=== PATIENT | female | born 1985 | race Caucasian/White ===

== ENCOUNTER 2021-05-03 13:29 | Outpatient (REF) | payer BC, SELFPAY ==
--- NOTE | 2021-05-03 11:00 | PAPFT_PTH ---
PATIENT: Sara Powell LOC: [facility] U#:[id number] AGE/SX: 36/F ROOM: RE05/03/[address]: Brit Graham CNM : 1985 BED: DIS: 05/03/2021 SPEC #: [id number] RECD: 05/03/21 17:11 STATUS: DEL LI #: [id number] ROBERT: 05/03/21 11:[address]: Brit Graham DEPT: [facility] Cytology RECD BY: Emely Richards ENTERED: 05/03/21 17:12 SP TYPE: PAPFT OTHR DR: Hailey Morris Tissues: 1 - CX/ENDOCX FOR PAP SMEARS Procedures: PAP THIN PREP/UVM Screening HPV DNA PROBE Comments: [id number]
[2021-05-03 14:51] LABS: *AMPHETAMINES SCREEN URINE Negative (Negative); *BARBITURATES SCREEN URINE Negative (Negative); *BENZODIAZEPINES SCREEN URINE Negative (Negative); Cannabinoids THC Negative (Negative); Cocaine Screen,Urine Negative (Negative); METHADONE URINE SCREEN Negative (Negative); OPIATES URINE SCREEN Negative (Negative); Tricyclic Antidepressants Negative (Negative)
[2021-05-07 14:33] LABS: Chlamydia Result Negative (Negative); GC Result Negative (Negative)
[2021-05-10 11:45] LABS: Buprenorphine Negative ng/mL (Cutoff: 5.0); Norbuprenorphine Negative ng/mL (Cutoff: 2.5)
== END 2021-05-03 13:30 | disposition home or self-care (01) ==
LOC: LBN 13:29
PROVIDERS: PCP Family Medicine; Visit Provider Advanced Practice Midwife
DX: Z34.91 Encounter for supervision of normal pregnancy, unspecified, first trimester (principal); Z12.4 Encounter for screening for malignant neoplasm of cervix; Z11.51 Encounter for screening for human papillomavirus (HPV)
CPT/HCPCS: 80307; 87491; 87591; 88142; 87086; 87624

== ENCOUNTER 2021-05-10 02:47 | Outpatient (CLI) | payer BC, SELFPAY ==
[2021-05-10 12:40] LABS: Kit/Specimen SENT
[2021-05-10 12:50] LABS: Abs Immature Grans 0.02 10^3/uL (0.0-0.06); Absolute Basophil Count 0.01 10^3/uL (0.0-0.2); Absolute Lymphocyte Count 1.34 10^3/uL (1.2-3.4); Absolute Neutrophil Count 5.26 10^3/uL (1.2-6.7); Basophils % 0.1; HCT 36.6 % (36.0-46.0); HGB 12.1 g/dL (11.2-15.7); Immature Grans % 0.3; Lymphocytes % 18.8; MCH 30.7 pg (27.0-33.0); MCHC 33.1 % (32.0-36.0); MCV 92.9 fL (80-95); Neutrophils % 73.8; Nucleated RBC 0 %; RBC 3.94 10^6/uL (3.93-5.22); RDW 11.8 % (11.7-14.6); RDW-SD 40.4 fL; WBC 7.13 10^3/uL (4.4-10.8)
[2021-05-10 13:02] LABS: Diff Comment Diff Reviewed
[2021-05-10 13:03] LABS: RBC Morphology Normal
[2021-05-10 13:56] LABS: TSH (W/Ref FT4) 2.08 uIU/mL (0.36-3.74)
[2021-05-11 08:59] LABS: Hepatitis B Surface Ag Negative (Negative)
[2021-05-11 09:34] LABS: Hepatitis C Ab w Rflx HCV PCR Negative (Negative)
[2021-05-11 10:16] LABS: HIV-1/2 Ag & Ab Screen Negative (Negative)
[2021-05-11 11:22] LABS: Varicella IgG Antibody Positive (See Note)
[2021-05-11 11:28] LABS: Rubella IgG Ab (UVM) Positive (See Note)
[2021-05-11 14:17] LABS: Syphilis Total Ab w/Reflex Nonreactive (Nonreactive)
[2021-05-17 14:23] LABS: Specimen WB Whole Blood
[2021-05-17 14:37] LABS: Result Summary NEGATIVE; Specimen WB Whole Blood
== END 2021-05-10 02:48 | disposition home or self-care (01) ==
LOC: LBO 02:47
PROVIDERS: Advanced Practice Midwife; PCP Family Medicine; Visit Provider Advanced Practice Midwife
DX: Z34.91 Encounter for supervision of normal pregnancy, unspecified, first trimester
CPT/HCPCS: 36415; 81329; 86787; 86803; 86850; 86900; 86901; 87340; 87389; 81220; 84443; 85025; 86762; 86780

== ENCOUNTER 2021-08-24 03:28 | Outpatient (CLI) | payer BC, SELFPAY ==
[2021-08-24 14:36] LABS: HCT 34.2 % (36.0-46.0); HGB 11.3 g/dL (11.2-15.7); MPV 9.3 fL (8.0-11.0); Platelet Count 170 10^3/uL (130-400); RBC 3.64 10^6/uL (3.93-5.22); RDW 12.9 % (11.7-14.6); RDW-SD 43.8 fL
[2021-08-24 14:46] LABS: Glucose,1 Hr (Glucola) 126 mg/dL (80-140)
== END 2021-08-24 03:29 | disposition home or self-care (01) ==
LOC: LBO 03:28
PROVIDERS: PCP Family Medicine; Visit Provider Advanced Practice Midwife
DX: Z34.93 Encounter for supervision of normal pregnancy, unspecified, third trimester (principal)
CPT/HCPCS: 36415; 82950; 85027

== ENCOUNTER 2021-09-14 00:30 | Outpatient (CLI) | payer BC, SELFPAY ==
--- NOTE | 2021-09-14 07:45 | DI.US_ITS ---
Exam(s) US OB ULICES WEIGHT EXAM: US OB ULICES WEIGHT CLINICAL HISTORY: ULICES and weight due to COVID in first trimester,U07.1,O98.511. TECHNIQUE: Transabdominal obstetrical ultrasound performed. COMPARISON: US US OB 2-3 TRIMESTER from 06/28/2021 FINDINGS: Transabdominal obstetrical ultrasound performed. FINDINGS: Number of fetuses: One. position: Cephalic. Placental location: There is a grade 1 posterior placenta. No evidence of previa. BIOMETRIC DATA: BPD: 81 mm = 32 weeks 3 days HC: 285 mm = 31 weeks 2 days AC: 270 mm = 31 weeks 1 day FL: 60 mm = 31 weeks 1 day EFW: 1725 grms 55% Composite Age: 31 weeks 4 days EDC: 11/12/2021 Heart Rate: 150BPM Amniotic fluid index: 16.4 cm. Visually, amount of fluid is within normal limits. IMPRESSION: 1. Single live intrauterine gestation as above. 2. Estimated weight is 1725gms. 3. Amniotic fluid index is 16.4 cm. Visually within normal limits. DATA REPOSITORY:
== END 2021-09-14 00:50 ==
PROVIDERS: PCP Family Medicine; Visit Provider Advanced Practice Midwife
DX: O98.513 Other viral diseases complicating pregnancy, third trimester (principal); U07.1 COVID-19; Z3A.31 31 weeks gestation of pregnancy
CPT/HCPCS: 76816

== ENCOUNTER 2021-10-25 17:22 | Outpatient (REF) | payer BC, SELFPAY ==
[2021-10-25 16:00] LABS: *AMPHETAMINES SCREEN URINE Negative (Negative); *BARBITURATES SCREEN URINE Negative (Negative); *BENZODIAZEPINES SCREEN URINE Negative (Negative); Cannabinoids THC Negative (Negative); Cocaine Screen,Urine Negative (Negative); METHADONE URINE SCREEN Negative (Negative); OPIATES URINE SCREEN Negative (Negative); Tricyclic Antidepressants Negative (Negative)
== END 2021-10-25 17:23 | disposition home or self-care (01) ==
LOC: LBN 17:22
PROVIDERS: PCP Family Medicine; Visit Provider Advanced Practice Midwife
DX: Z34.93 Encounter for supervision of normal pregnancy, unspecified, third trimester (principal); Z36.85 Encounter for antenatal screening for Streptococcus B; Z3A.36 36 weeks gestation of pregnancy
CPT/HCPCS: 80307; 87081

== ENCOUNTER 2021-11-12 16:44 | Outpatient (REF) | payer BC, SELFPAY ==
[2021-11-12 15:34] LABS: ROM Plus Negative
== END 2021-11-12 16:45 | disposition home or self-care (01) ==
LOC: LBN 16:44
PROVIDERS: PCP Family Medicine; Visit Provider Advanced Practice Midwife
DX: Z34.93 Encounter for supervision of normal pregnancy, unspecified, third trimester (principal); N89.8 Other specified noninflammatory disorders of vagina; Z3A.39 39 weeks gestation of pregnancy
CPT/HCPCS: 84112; 87480; 87510; 87660

== ENCOUNTER 2021-11-19 09:30 | Inpatient (IN) | payer BC, SELFPAY ==
[2021-11-19] VITALS (24 sets, daily range): BP systolic 108–150; BP diastolic 59–89; PULSE 63–98; RESP 15–18; TEMP 36.4–37.6; O2SAT 87–100; BMI 29.2
[2021-11-19 11:46] LABS: Source Nasal/Nares
[2021-11-19 11:48] LABS: HCT 37.2 % (36.0-46.0); HGB 12.6 g/dL (11.2-15.7); MCH 30.8 pg (27.0-33.0); MCHC 33.9 % (32.0-36.0); MCV 91 fL (80-95); MPV 11.6 fL (8.0-11.0); Platelet Count 142 10^3/uL (130-400); RBC 4.09 10^6/uL (3.93-5.22); RDW 12.3 % (11.7-14.6); RDW-SD 40.3 fL; WBC 15.87 10^3/uL (4.4-10.8)
--- NOTE | 2021-11-19 11:56 | W.PM.OBHPL1 ---
Date of service: 11/19/21 Time of Service: 11:15 OB-HPI Labor/Delivery History of Present Illness Reason for Visit: Term Labor Chief Complaint: Uterine Contractions; Suspected Rupture of Membranes , Associated Signs and Symptoms of Suspected ROM: leaking large amounts of clear amniotic fluid through vagina. RADHA Calculator Estimated Delivery Date Method Current WG Current Estimate 11/18/21 LMP (Certain) 40w 1d Other Estimates 11/20/21 Ultrasound #1 39w 6d Comments: Sara reports SROM at 0300 today. Contractions started shortly after. Fluid has been clear. On arrival contractions were becoming more intense and every 3-4 minutes lasting 60-90 seconds. Baby has been active. She is hoping for unmedicated but has left options open Denies signs of pre-eclampsia, vaginal bleeding. Kh History of Present Expected Delivery Route/Plan - CNM FOB/partner - Sebastian Cho (first child) BG Hollie Interested in using nitrous, waterbirth GBS negative Specific Issues/Plan 1. AMA, desires cfDNA screening. drawn 05/03 1a. offered level 2 sono @ [facility] and M consult, pt accepts, order placed 1b. Panorama Neg X 5, female, Declined level 2 US, US at [facility] 2. Waiting for PA approval before having CF/SMA drawn, undecided about AFP. CF and SMA neg 3. Depression, responded well w/Effexor XR, restarted @ 75 mg daily 04/06 3a. Effexor dose decreased to 37.5 per patient request, will consider weaning, wellbutrin started 08/24 for smoking cessation 4. PCN allergy in childhood, low risk and interested in allergy testing @ [facility], referral sent 4a. Declined penicillin testing. sensitivity if GBS pos. 5. Both pt and FOB are COVID vaccinated, 5a. Both had covid 05/2022- 32 week US on 09/14, ASA recommended daily 6. Former smoker now vaping nicotine, trying to reduce use-lowered the percentage slowly 6a. Wellbutrin prescribed for nicotine absinance. 7. PAP is neg with suggestion of BV, discussed with pt 06/28 - asymptomatic 8. Placenta 2.2 cms from os - recheck at 32 week US on 09/14. 55% growth, ULICES 16.4 9. Bacterial vaginosis - treated with metronidazole PO x7 days Assessment: History Reviewed & Current Informed Consent Informed Consent: Augmentation of Labor (if labor does not progress, we discussed pitocin if necessary due to ROM. Denies questions and verblaizes agreement and is aware of risks and benefits of augmentation of labor. WILLIAM) Review of Systems All systems reviewed & are unremarkable except as noted in HPI and below Constitutional Constitutional: Reports as per HPI Genitourinary Comments: leaking clear fluid vaginally PFSH All Active Problems COVID-19 affecting in first trimester (Acute) 05/15/2021 Chronic constipation (Acute) Nicotine dependence due to vaping tobacco product (Acute) Elderly primigravida, antepartum (Acute) H/O penicillin-type antibiotic allergy (Acute) (Acute) Depression (Chronic) Medical History Family history of congenital heart disease in paternal grandfather Family hx-stroke MGM Missed menses Positive home test Positive test Family History Maternal Grandfather Colon cancer Cancer bone CA Prostate cancer Self Depression Paternal Grandfather Heart disease Maternal Grandmother Stroke Other Alcohol use disorder Social History Smoking/Tobacco Use Status: Current every day Tobacco Type: e-cigarettes Quit status: considering quitting Second Hand Exposure: Yes Counseling given: provider counseling Smoking risk assessment performed?: Yes Alcohol Intake: former Counseling given: Yes Details: daily alcohol use prior to Substance use type: does not use Current gender identity: female History History 1 Para 0 Hx # Term Pregnancies 0 Multiple births 0 Hx # Pregnancies 0 Ectopic pregnancies 0 AB induced 0 Hx Number of Living Children 0 AB spontaneous 0 Meds Allergies and Home Medications Allergies Allergy/AdvReac Type Severity Reaction Status Date / Time Penicillins Allergy Verified 11/19/21 12:03 benzoyl peroxide AdvReac Intermediate moderate Verified 11/19/21 12:03 rash with extreme itching Home Medications Medication Instructions Recorded Confirmed Type vit with calcium-iron 1 tab PO DAILY 03/16/21 11/19/21 History fum-folic acid 60 mg-0.8 mg tablet docusate sodium 100 mg capsule 100 mg PO BID #60 caps 08/24/21 11/19/21 Rx (Colace) magnesium hydroxide 400 mg/5 mL 5 ml PO DAILY PRN 08/24/21 11/19/21 History oral suspension (Milk of Magnesia) venlafaxine 37.5 mg 37.5 mg PO DAILY 10/12/21 11/19/21 History capsule,extended release 24 hr metronidazole 500 mg tablet 500 mg PO BID #14 tabs 11/12/21 11/19/21 Rx Exam Physical Exam Vital signs: Temp Pulse Resp BP 97.9 F 63 15 121/77 11/19/21 11:02 11/19/21 11:02 11/19/21 11:02 11/19/21 11:02 Vital Signs Reviewed: Yes Constitutional Constitutional: mild distress (working well with contractions) Detailed Labor and Delivery Exam Dilation: 3 Effacement (%): 80 station: -2 Cervix position: posterior Min Score: Cervical Points Exam 0 1 2 3 Dilation Closed 1-2cm 3-4 cm 5-6cm Effacement 0-30% 40-50% 60-70% 80% Consistency Firm Medium Soft Station -3 -2 -1,0 +1,+2 Position Posterior Mid Anterior MIN Score(Cervical Ripeness Score): 8 Amniotic Membrane Status: Ruptured Rupture Method: Spontaneous Amniotic Fluid: Clear Contraction Frequency(min): 3-4 Contraction Duration(sec): 60-90 Contraction Intensity: Moderate Fetus A Heart Rate Baseline: 125 Monitor Accelerations: 15 X 15 Monitor Decelerations: None Variability: Moderate (6-25 BPM) Categories: Category I Est. Weight: 7 lb Date of Membrane Rupture: 11/19/21 Time of Membrane Rupture: 03:30 HEENT Exam HEENT Exam: Normal Neck Exam Neck Exam: Normal Chest/Brest/Axilla Exam Chest Exam: Normal Breast Exam Breast Exam: Not Done Respiratory Exam Respiratory Exam: Normal Cardiovascular Exam Cardiovascular Exam: Normal Abdominal Exam Abdominal Exam: Normal Rectal Exam Rectal Exam: Not Done Exam Exam: Normal (leaking clear amniotic fluid in large amounts. KH) Back/Spine/Pelvis Exam Back Exam: Not Done Pelvis Adequate: Yes Skin Exam Skin Exam: Normal Neurological Exam Neurological Exam: Normal Psychiatric Exam Psychiatric Exam: Normal Results Results Group Beta Strep: Negative Blood Type: A+ Rubella Status: Immune Varicella Immunity: Immune Risk Assessment Risk for Shoulder Dystocia Historical/Initial OB: NEGATIVE FOR: Pelvic Abnormality, Pre- BMI>30, Previous Shoulder Dystocia or Previous Macrosomia 40 Weeks: NEGATIVE FOR: EFW> 4500 gms, Maternal Weight Gain >40lb or Post Dates Delivery Plan @ 36wks: 10/25/21 KEMAL THOMAS Delivery Plan @ 40 wks: NVD. THOMAS Risk for Pre-Eclampsia Date Initiated/Initials: not indicated. jk Yes, if one or more: NEGATIVE FOR: Hx Pre-E/Gest HTN, Chronic HTN, Multiple Gestation, Pre-gestational DM, Renal Disease, Systemic Lupus or APA Syndrome Yes, if 2 or more: POSITIVE FOR: Nulliparity and Age>= 35 yrs; NEGATIVE FOR: >10yr btwn pregnancies, BMI>30, ethinicty, Mother/Sister w/ Pre-E or Previous IUGR Risk for Post- Hemorrhage Initial: NEGATIVE FOR: Multiple Gestation, Previous PPH, Known Clotting Deficiency, Grand Multiparity or Anticoagulation At Risk?: No Date/Initials: 11/19/21. Risks Reviewed Risks Reviewed Upon Admission: Yes
[2021-11-19 12:43] LABS: COVID-19 PCR Negative (Negative)
--- NOTE | 2021-11-19 13:57 | W.PM.OBNL1 ---
Date of service: 11/19/21 Time of Service: 13:57 Informed Consent Informed Consent: Augmentation of Labor (if labor does not progress, we discussed pitocin if necessary due to ROM. Denies questions and verblaizes agreement and is aware of risks and benefits of augmentation of labor. KH) Assessment and Plan Assessment and plan (1) PROM with onset of labor within 24 hours of rupture: Status: Acute Assessment and plan: 1. ROM at 0330, not 12 hours ruptured yet. Labor contractions are regular and increasing in intensity. 2. Will defer VE due to ROM 3. Nitrous for pain management and reassess as needed. Objective Abnormal lab results 11/19/21 Range/Units 11:24 WBC 15.87 H (4.4-10.8) 10^3/uL MPV 11.6 H (8.0-11.0) fL Temp Pulse Resp BP 97.6 F 71 16 135/80 11/19/21 13:01 11/19/21 13:01 11/19/21 13:01 11/19/21 13:01 Laboratory Results WBC 15.87 10^3/uL (4.4-10.8) H 11/19/21 11:24 RBC 4.09 10^6/uL (3.93-5.22) 11/19/21 11:24 Hgb 12.6 g/dL (11.2-15.7) 11/19/21 11:24 Hct 37.2 % (36.0-46.0) 11/19/21 11:24 MCV 91 fL (80-95) 11/19/21 11:24 MCH 30.8 pg (27.0-33.0) 11/19/21 11:24 MCHC 33.9 % (32.0-36.0) 11/19/21 11:24 RDW 12.3 % (11.7-14.6) 11/19/21 11:24 Plt Count 142 10^3/uL (130-400) 11/19/21 11:24 MPV 11.6 fL (8.0-11.0) H 11/19/21 11:24 COVID-19 Source Nasal/Nares 11/19/21 11:04 SARS-CoV-2 (PCR) Negative (Negative) 11/19/21 11:04 Patient ABO/Rh A Positive 11/19/21 11:24 Antibody Screen NEGATIVE 11/19/21 11:24 Subjective Interval history since last seen: Sara states she is fatigued but that contractions are stronger and coming every 2-3 minutes. She is requesting nitrous oxide for pain management. KH Interventions Pain Management Interventions: Nitrous Oxide (patient is aware of use and that she can be the only person using nitrous in room. KH) , patient is aware of nitrous use and that she is only person who can use or administer nitrous for herself. KH . Results Hemoglobin/Hematocrit: Hgb 12.6 g/dL (11.2-15.7) 11/19/21 11:24 Hct 37.2 % (36.0-46.0) 11/19/21 11:24 Abnormal Lab Findings: Abnormal Labs 11/19/21 11:24 WBC 15.87 H MPV 11.6 H
--- NOTE | 2021-11-19 15:23 | W.PM.OBNL1 ---
Date of service: 11/19/21 Time of Service: 15:23 Informed Consent Informed Consent: Augmentation of Labor (if labor does not progress, we discussed pitocin if necessary due to ROM. Denies questions and verblaizes agreement and is aware of risks and benefits of augmentation of labor. ) Pelvic Exam Dilation: 4 Effacement (%): 80 station: -2 Cervix Position: posterior Consistency: soft BISHOPS Score(Cervical Ripeness Score): 8 Comments: bag of forewaters palpable, will like rupture with next VE. Contractions Monitor Mode: External Contraction Frequency(min): 3 Contraction Duration(sec): 60 Intensity: Moderate Fetus A Monitor: External (US) Heart Rate Baseline: 140 Variability: Moderate (6-25 BPM) Categories: Category I Accelerations: 15 X 15 Decelerations: None Assessment and Plan Assessment and plan (1) PROM with onset of labor within 24 hours of rupture: Status: Acute Assessment and plan: 1. anesthesia notified of request for epidural 2. IV fluids to begin 3. Will reassess after epidural for cervical changes and consider pitocin if indicated. Objective Abnormal lab results 11/19/21 Range/Units 11:24 WBC 15.87 H (4.4-10.8) 10^3/uL MPV 11.6 H (8.0-11.0) fL Temp Pulse Resp BP 97.9 F 88 16 129/89 11/19/21 14:57 11/19/21 14:57 11/19/21 14:57 11/19/21 14:57 Laboratory Results WBC 15.87 10^3/uL (4.4-10.8) H 11/19/21 11:24 RBC 4.09 10^6/uL (3.93-5.22) 11/19/21 11:24 Hgb 12.6 g/dL (11.2-15.7) 11/19/21 11:24 Hct 37.2 % (36.0-46.0) 11/19/21 11:24 MCV 91 fL (80-95) 11/19/21 11:24 MCH 30.8 pg (27.0-33.0) 11/19/21 11:24 MCHC 33.9 % (32.0-36.0) 11/19/21 11:24 RDW 12.3 % (11.7-14.6) 11/19/21 11:24 Plt Count 142 10^3/uL (130-400) 11/19/21 11:24 MPV 11.6 fL (8.0-11.0) H 11/19/21 11:24 COVID-19 Source Nasal/Nares 11/19/21 11:04 SARS-CoV-2 (PCR) Negative (Negative) 11/19/21 11:04 Patient ABO/Rh A Positive 11/19/21 11:24 Antibody Screen NEGATIVE 11/19/21 11:24 Vital Signs Reviewed: Yes Subjective Interval history since last seen: requesting epidural, did not like nitrous oxide. She is aware that she will need to be in bed and on monitor for labor and that pitocin may be necessary due to relaxation of epidural. Agrees to this plan. Anesthesia paged. KH Interventions Pain Management Interventions: Epidural. Results Hemoglobin/Hematocrit: Hgb 12.6 g/dL (11.2-15.7) 11/19/21 11:24 Hct 37.2 % (36.0-46.0) 11/19/21 11:24 Abnormal Lab Findings: Abnormal Labs 11/19/21 11:24 WBC 15.87 H MPV 11.6 H
--- NOTE | 2021-11-19 15:23 | W.ANESPRE ---
General Info Date of Service Date Performed: 11/19/21 Height: 5 ft 5 in Weight: 79.832 kg Body Mass Index (BMI): 29.2 Meds Allergies and Home Medications Allergies Allergy/AdvReac Type Severity Reaction Status Date / Time Penicillins Allergy Verified 11/19/21 12:03 benzoyl peroxide AdvReac Intermediate moderate Verified 11/19/21 12:03 rash with extreme itching Home Medication Medication Instructions Recorded vit with calcium-iron 1 tab PO DAILY 03/16/21 fum-folic acid 60 mg-0.8 mg tablet docusate sodium 100 mg capsule 100 mg PO BID #60 caps 08/24/21 (Colace) magnesium hydroxide 400 mg/5 mL 5 ml PO DAILY PRN 08/24/21 oral suspension (Milk of Magnesia) venlafaxine 37.5 mg 37.5 mg PO DAILY 10/12/21 capsule,extended release 24 hr metronidazole 500 mg tablet 500 mg PO BID #14 tabs 11/12/21 Current Visit Medications: Current Medications Generic Name Dose Route Start Last Admin Trade Name Freq PRN Reason Stop Dose Admin Sodium Chloride 500 mls @ 0 mls/hr 11/19/21 08:58 Saline 500ml Bag IV PRN PRN As Directed Ringer's Solution 1,000 mls @ 1,000 mls/hr 11/19/21 15:22 IV 11/19/21 16:21 BOLUS ONE IV Miscellaneous Supplies 1 each 11/19/21 09:00 Iv Access IV DIRECTED [facility] Ondansetron HCl 4 mg 11/19/21 13:56 Ondansetron O.D.T. 4 Mg Tabef PO Q8H PRN PRN Sodium Chloride 0 ml 11/19/21 08:58 Normal Saline Flush 10 Ml Syr IVP PRN PRN Venlafaxine HCl 37.5 mg 11/19/21 18:00 Venlafaxine 37.5 Mg Capcr PO DAILY@1800 [facility] Active Problems Active Problems: Problem Status Onset Code PROM with onset of labor within 24 hours of rupture O42.00 COVID-19 affecting in first trimester O98.511, U07.1 Chronic constipation K59.09 Nicotine dependence due to vaping tobacco product F17.290 Elderly primigravida, antepartum O09.519 H/O penicillin-type antibiotic allergy Z88.0 Z34.90 Depression F32.A Medical History Medical History Family history of congenital heart disease in paternal grandfather Family hx-stroke MGM Missed menses Positive home test Positive test Tobacco Smoking/Tobacco Use Status: Current every day Tobacco Type: e-cigarettes Second hand exposure: Yes Counseling given: provider counseling Alcohol Alcohol Intake: former Details: daily alcohol use prior to Substance Use Substance use type: does not use Prental History History 1 Para 0 Hx # Term Pregnancies 0 Multiple births 0 Hx # Pregnancies 0 Ectopic pregnancies 0 AB induced 0 Hx Number of Living Children 0 AB spontaneous 0 Vital Signs and Lab Results Vital Signs Most Recent Vital Signs in EMR: Most Recent Vital Signs Temp Pulse Resp BP 36.6 C 88 16 129/89 11/19/21 14:57 11/19/21 14:57 11/19/21 14:57 11/19/21 14:57 Lab Results Result Diagrams: 11/19/21 11:24 Blood Type / Crossmatch: Patient ABO/Rh A Positive 11/19/21 Antibody Screen NEGATIVE 11/19/21 Complete Blood Count: White Blood Count 15.87 10^3/uL (4.4-10.8) H 11/19/21 11:24 Red Blood Count 4.09 10^6/uL (3.93-5.22) 11/19/21 11:24 Hemoglobin 12.6 g/dL (11.2-15.7) 11/19/21 11:24 Hematocrit 37.2 % (36.0-46.0) 11/19/21 11:24 Platelet Count 142 10^3/uL (130-400) 11/19/21 11:24 Complete Metabolic Panel: No Data to Display Liver Function Panel: No Data to Display Coagulation Panel: No Data to Display Cardiac Panel: No Data to Display Arterial Blood Gas: No Data to Display Venous Blood Gas: No Data to Display Pancreas Panel: No Data to Display Thyroid Panel: No Data to Display Infectious Disease: Coronavirus (COVID-19)(PCR) Negative (Negative) 11/19/21 11:04 Coronavirus 2019 Source Nasal/Nares 11/19/21 11:04 Blood Cultures: No Data to Display Toxicology Panel: Urine Amphetamines Screen Negative (Negative) 10/25/21 14:00 Urine Benzodiazepines Screen Negative (Negative) 10/25/21 14:00 Urine Barbiturates Screen Negative (Negative) 10/25/21 14:00 Urine Cocaine Screen Negative (Negative) 10/25/21 14:00 Urine Methadone Screen Negative (Negative) 10/25/21 14:00 Urine Opiates Screen Negative (Negative) 10/25/21 14:00 Ur Tricyclic Antidepressants Screen Negative (Negative) 10/25/21 14:00 Ur Tetrahydrocannabinol (THC) Scrn Negative (Negative) 10/25/21 14:00 Panel: No Data to Display Anesthesia Assessment and Plan Anesthesia History Personal History: No History of Anesthesia Complications Family History: No Family History of Anesthesia Complications Exercise Tolerance Exercise Tolerance: Metabolic Equivalents>4 Cardiac & Pulmonary Exam Cardiac Exam: Normal S1/S2 Heart Sounds Pulmonary Exam: Clear Bilateral Breath Sounds Implantable Cardiac Device Does patient have a Pacemaker or an ICD?: No Airway Exam Known Difficult Airway: No Mallampati Class: 2 Mouth Opening: Normal (> 3cm) Thyromental Distance: Greater than 3 cm Neck Range of Motion: Full ROM Neck Circumference: Normal Teeth Condition: Normal Dentition ASA Classification ASA Score: ASA 2 Emergency Case?: No NPO Status NPO Status: Full Stomach Status Status: Other () Anesthesia Plan Resuscitation Status: Full Code Anesthesia Technique: Epidural Anesthesia Airway Planned: Natural Airway Pain Management: Epidural Monitors Used: Standard Monitors Preoperative Comments:: 36 yo female requesting labor epidural. Currently 4 cm, 80%. Sig PMHx: depression, former smoker now vaping nicotine plt 142
[2021-11-19] MEDS: Lactated Ringers 500 ML IV (15:56)
--- NOTE | 2021-11-19 16:27 | W.ANESNEU ---
Epidural/Spinal Catheter Date Performed: 11/19/21 Procedure Start: 15:58 Procedure Stop: 16:04 Requesting Provider: Elenita Lorenzo Procedure Location: Obstetrics Reason Performed: Labor Epidural Standard Monitors Applied: ECG, Blood Pressure and SpO2 Patient Position: Sitting Sedation Given (Indicate Dose Given): No Sedation given Patient Mental Status: Awake Sterility: Hand Hygiene, Surgical Cap, Surgical Mask, Sterile Gloves, Sterile Drape/Sheet and Chlorhexidine Procedure Location: L3-L4 Interspace Epidural Needle: Tuohy 17 Guage Needle Length: 3.5 Inch Needle Approach: Midline Epidural Procedure: Skin Prepped, Sterile Drape Placed, DONALD to Saline Used and Epidural Catheter Placed Catheter Placed?: Catheter Placed Test Dose (Indicate Dose Given): 3ml 1.5% Lidocaine with 1:200K Epinephrine Given and Negative Test Dose Loss of Resistance Depth (cm): 6 Catheter depth at skin (cm): 11 Dressing: Sorbaview Dressing Placed and Mastisol Used Epidural Provider Bolus (Indicate Dose Given): Total Ropivacaine 0.125% with Fentanyl 2mcg/ml Given from pump. (ml) Dose:: 5 mL Additives (Indicate Dose Given ): None Infusion Medication: Medication Infusion Began Medication Infusion: Ropivacaine 0.125% with Fentanyl 2mcg/ml Maintenance Infusion Rate (ml/hour): 10 PCEA Bolus Dose (ml): 4 Block Level: T7 Paresthesia: None Ultrasound: Used to areli site Number of Attempts (See previous attempts in note section): 1 Procedure Tolerated: No Complications Procedure Outcome: Successful Procedure Comment:: wire reinforced catheter used. more dense on left vs right. discussed positioning and additional volume to overcome. Performed By: Rogelio Giordano
--- NOTE | 2021-11-19 16:37 | W.PM.OBNL1 ---
Date of service: 11/19/21 Time of Service: 16:30 Informed Consent Informed Consent: Augmentation of Labor (if labor does not progress, we discussed pitocin if necessary due to ROM. Denies questions and verblaizes agreement and is aware of risks and benefits of augmentation of labor. ) Pelvic Exam Dilation: 6 Effacement (%): 80 station: -2 Consistency: soft Comments: + bloody show with exam, no fore bundy palpated. Will continue to monitor for 2-3 hours and reassess. Contractions Monitor Mode: External Contraction Frequency(min): 2-3 Contraction Duration(sec): 60-90 Intensity: Moderate/Strong (on palpation) Fetus A Monitor: External (US) Heart Rate Baseline: 140 Variability: Moderate (6-25 BPM) Categories: Category I Assessment and Plan Assessment and plan (1) PROM with onset of labor within 24 hours of rupture: Status: Acute Assessment and plan: 1. epidural in place with good results. 2. Cervical change from 4 prior to epidural to 6 following 3. Will reassess in 2 hours or prn. 4. Expect NVD. Objective Abnormal lab results 11/19/21 Range/Units 11:24 WBC 15.87 H (4.4-10.8) 10^3/uL MPV 11.6 H (8.0-11.0) fL Temp Pulse Resp BP Pulse Ox 98.8 F 83 16 131/76 100 11/19/21 16:10 11/19/21 16:34 11/19/21 14:57 11/19/21 16:34 11/19/21 16:20 Laboratory Results WBC 15.87 10^3/uL (4.4-10.8) H 11/19/21 11:24 RBC 4.09 10^6/uL (3.93-5.22) 11/19/21 11:24 Hgb 12.6 g/dL (11.2-15.7) 11/19/21 11:24 Hct 37.2 % (36.0-46.0) 11/19/21 11:24 MCV 91 fL (80-95) 11/19/21 11:24 MCH 30.8 pg (27.0-33.0) 11/19/21 11:24 MCHC 33.9 % (32.0-36.0) 11/19/21 11:24 RDW 12.3 % (11.7-14.6) 11/19/21 11:24 Plt Count 142 10^3/uL (130-400) 11/19/21 11:24 MPV 11.6 fL (8.0-11.0) H 11/19/21 11:24 COVID-19 Source Nasal/Nares 11/19/21 11:04 SARS-CoV-2 (PCR) Negative (Negative) 11/19/21 11:04 Patient ABO/Rh A Positive 11/19/21 11:24 Antibody Screen NEGATIVE 11/19/21 11:24 Subjective Interval history since last seen: very comfortable since epidural. feeling relaxed. happy with process. KH Results Hemoglobin/Hematocrit: Hgb 12.6 g/dL (11.2-15.7) 11/19/21 11:24 Hct 37.2 % (36.0-46.0) 11/19/21 11:24 Abnormal Lab Findings: Abnormal Labs 11/19/21 11:24 WBC 15.87 H MPV 11.6 H
[2021-11-19] MEDS: Venlafaxine 37.5 MG CAPCR PO (16:48)
[2021-11-19] MEDS: Lactated Ringers 1,000 ML 150 ML IV (16:54)
[2021-11-19] MEDS: Oxytocin/Normal Saline 30 UNIT/500 ML BAG 2 UNITS IV (18:20)
--- NOTE | 2021-11-19 18:24 | W.PM.OBNL1 ---
Date of service: 11/19/21 Time of Service: 18:25 Informed Consent Informed Consent: Augmentation of Labor (if labor does not progress, we discussed pitocin if necessary due to ROM. Denies questions and verblaizes agreement and is aware of risks and benefits of augmentation of labor. ) Pelvic Exam Comments: VE deferred until active contractions. Contractions Contraction Frequency(min): 3-5 Contraction Duration(sec): 60-90 Intensity: Moderate Fetus A Monitor: External (US) Heart Rate Baseline: 140 Variability: Moderate (6-25 BPM) Categories: Category I Accelerations: 15 X 15 Decelerations: None Assessment and Plan Assessment and plan (1) PROM with onset of labor within 24 hours of rupture: Status: Acute Assessment and plan: 1. Discussed pitocin augmentation with patient as ROM since 0330 and contractions less frequent since epidural. Patient agrees to plan. Pitocin started at 2 mu. 2. Expect NVD. Objective Abnormal lab results 11/19/21 Range/Units 11:24 WBC 15.87 H (4.4-10.8) 10^3/uL MPV 11.6 H (8.0-11.0) fL Temp Pulse Resp BP Pulse Ox 98.6 F 98 H 16 134/69 100 11/19/21 18:02 11/19/21 18:02 11/19/21 18:02 11/19/21 18:02 11/19/21 16:20 Laboratory Results WBC 15.87 10^3/uL (4.4-10.8) H 11/19/21 11:24 RBC 4.09 10^6/uL (3.93-5.22) 11/19/21 11:24 Hgb 12.6 g/dL (11.2-15.7) 11/19/21 11:24 Hct 37.2 % (36.0-46.0) 11/19/21 11:24 MCV 91 fL (80-95) 11/19/21 11:24 MCH 30.8 pg (27.0-33.0) 11/19/21 11:24 MCHC 33.9 % (32.0-36.0) 11/19/21 11:24 RDW 12.3 % (11.7-14.6) 11/19/21 11:24 Plt Count 142 10^3/uL (130-400) 11/19/21 11:24 MPV 11.6 fL (8.0-11.0) H 11/19/21 11:24 COVID-19 Source Nasal/Nares 11/19/21 11:04 SARS-CoV-2 (PCR) Negative (Negative) 11/19/21 11:04 Patient ABO/Rh A Positive 11/19/21 11:24 Antibody Screen NEGATIVE 11/19/21 11:24 Subjective Interval history since last seen: remains very comfortable. We discussed pitocin augmentation due to contractions spacing slightly to 3-5 minutes apart. Patient agrees to plan. She is aware of risks, benefits and alternatives. We reviewed active management of third stage with pitocin and PO cytotec if needed. KH Results Hemoglobin/Hematocrit: Hgb 12.6 g/dL (11.2-15.7) 11/19/21 11:24 Hct 37.2 % (36.0-46.0) 11/19/21 11:24 Abnormal Lab Findings: Abnormal Labs 11/19/21 11:24 WBC 15.87 H MPV 11.6 H
[2021-11-19] MEDS: Normal Saline 500 ML IV (18:25)
[2021-11-20] VITALS (15 sets, daily range): BP systolic 111–140; BP diastolic 60–81; PULSE 67–88; RESP 14–18; TEMP 36.6–37.4; O2SAT 98–100
[2021-11-20] MEDS: Ondansetron O.D.T. 4 MG TABEF PO ×2 (01:37→13:39)
[2021-11-20] MEDS: Normal Saline 250 ML (03:08)
[2021-11-20] MEDS: Azithromycin 500 MG VIAL (03:08)
[2021-11-20] MEDS: Sodium Citrate 30 ML CUP (03:30)
[2021-11-20] MEDS: ceFAZolin 2 GM/50 ML BAG 125 GM (03:46)
--- NOTE | 2021-11-20 06:19 | W.ANESPOSTOP ---
Postoperative Evaluation Date, Time and Location Date Performed: 11/20/21 Time Performed: 05:40 Patient Location: Obstetrics Vital Signs Most Recent Imported Vital Signs: Most Recent Vital Signs Temp Pulse Resp BP Pulse Ox 37.4 C 88 16 125/71 100 11/20/21 01:02 11/20/21 06:11 11/20/21 01:02 11/20/21 06:11 11/20/21 05:07 Pain Score Most Recent Pain Score: Most Recent Pain Score Pain Level [Bilateral Abdomen] 2 11/19/21 23:42 Pain Level 6 11/20/21 01:37 Assessment Mental Status: Awake (Alert & Oriented to Patient Baseline) Airway and Respiratory Function: Patent airway with normal (patient baseline) respiratory exam Cardiovascular Function: Hemodynamically Stable Hydration Status: Adequately Hydrated Nausea & Vomiting: No Nausea or Vomiting Pain: Pain is tolerable per patient Peripheral Nerve Block: Patient did not receive a nerve block
--- NOTE | 2021-11-20 08:20 | W.OBCONSULT ---
Date of service: 11/20/21 Time of Service: 03:00 Assessment and Plan Assessment and plan (1) Arrested labor: Status: Acute Assessment and plan: Reviewed risks of CS with pt including infection, bleeding, pain and injury to nearby organs and she agrees to proceed. Consent signed and questions answered. Appropriate team aware. History of Present Illness Narrative: Called to discuss a C section due to arrest of dilation @6cm for >7hrs. Pt was having inadequate pain control with significant back pain. On pitocin without adequate contractions or a regular ctx pattern. Pt desires CS. PFSH All Active Problems (Updated 11/20/21 @ 09:15 by Nyasia Daily MD) Arrested labor (Acute) PROM with onset of labor within 24 hours of rupture (Acute) COVID-19 affecting in first trimester (Acute) 05/15/2021 Chronic constipation (Acute) Nicotine dependence due to vaping tobacco product (Acute) Elderly primigravida, antepartum (Acute) H/O penicillin-type antibiotic allergy (Acute) (Acute) Depression (Chronic) Medical History Family history of congenital heart disease in paternal grandfather Family hx-stroke MGM Missed menses Positive home test Positive test Family History Maternal Grandfather Colon cancer Cancer bone CA Prostate cancer Self Depression Paternal Grandfather Heart disease Maternal Grandmother Stroke Other Alcohol use disorder Social History Smoking/Tobacco Use Status: Current every day Tobacco Type: e-cigarettes Quit status: considering quitting Second Hand Exposure: Yes Counseling given: provider counseling Smoking risk assessment performed?: Yes Alcohol Intake: former Counseling given: Yes Details: daily alcohol use prior to Substance use type: does not use Current gender identity: female History History 1 Para 0 Hx # Term Pregnancies 0 Multiple births 0 Hx # Pregnancies 0 Ectopic pregnancies 0 AB induced 0 Hx Number of Living Children 0 AB spontaneous 0 Exam Const General: cooperative, healthy appearing and acute distress (with contractions) Results Last Vital Signs Temp 98.0 F 11/20/21 05:56 Pulse 83 11/20/21 07:30 Resp 18 11/20/21 05:56 BP 121/68 11/20/21 07:30 Pulse Ox 100 11/20/21 05:07 Labs Result diagrams: 11/19/21 11:24 Labs: Laboratory Results - last 24 hr 11/19/21 11/19/21 11/19/21 11:04 11:24 11:24 WBC 15.87 H RBC 4.09 Hgb 12.6 Hct 37.2 MCV 91 MCH 30.8 MCHC 33.9 RDW 12.3 Plt Count 142 MPV 11.6 H COVID-19 Source Nasal/Nares SARS-CoV-2 (PCR) Negative Patient ABO/Rh A Positive Antibody Screen NEGATIVE
--- NOTE | 2021-11-20 09:17 | W.PM.OP ---
Date of service: 11/20/21 Time of Service: 04:00 Operative Note Operative Note DATE OF PROCEDURE: 11/20/21 PRE-OP DIAGNOSIS: Arrest of dilation POST-OP DIAGNOSIS: same PROCEDURE: PLTCS SURGEON: Nyasia Daily ASSISTING SURGEON: Elenita Curran Refer to Anesthesia Record ESTIMATED BLOOD LOSS: 600 COMPLICATIONS: None Patient was transported to: floor Patient's condition: stable Indications: who presented at 40.1wks with SROM and progressed into labor spontaneously. She received an epidural at 4cm and then arrested dilation at 6cm for >7hrs despite use of pitocin augmentation. She opted to proceed with section. Findings: Female infant, transverse presentation. Normal appearing uterus, ovaries and tubes. Normal appearing placenta and cord. Procedure Description: After informed consent was signed the patient was taken to the operating room. She was given spinal anesthesia, SCDs were placed on her legs and a mcallister catheter had previously been introduced into her bladder. The heart rate was checked and was normal. She was then prepped and draped in the dorsal supine position with a leftward tilt. The patient was tested and spinal anesthesia was found to be adequate. A time out was performed. A skin incision was made with the scalpel and carried down to the underlying layer of fascia with blunt dissection. The fascia was incised on either side of the midline and the fascial incision extended laterally with a combination of sharp and blunt dissection. The inferior edge of the fascia was grasped with todd clamps and tented up and dissected down with a combination of sharp and blunt dissection. Then the superior edge of the fascial incision was grasped with todd clamps and tented up and dissected down with a combination of sharp and blunt dissection. The rectus muscles were in the midline and the peritoneum was entered bluntly. The peritoneal incision was extended laterally with blunt dissection. The bladder blade was inserted. A transverse incision was made in the lower uterine segment with the scalpel. The incision was extended superiorly and inferiorly with blunt pressure. The infants head delivered with fundal pressure followed by the shoulders and the rest of the body. The cord was milked toward the baby and after 1min it was clamped x2 and cut. The baby was handed to the ophthalmic technologist. Cord blood was collected. The placenta delivered with fundal massage and gentle cord traction and appeared to be intact. The uterus was exteriorized and cleared of clots and debris. The uterine incision was closed with 0-vicryl in a running locked fashion with a second layer of suture imbricating the first. Good hemostasis was noted. The abdomen was irrigated. The uterus was placed back into the abdominal cavity. The incision was inspected once again and good hemostasis was noted. The peritoneum was closed with 3-0 vicryl in a running unlocked fashion. There was good hemostasis of the rectus muscles. The fascia was closed with 0-vicryl in a running unlocked fashion. The subcuticular layer was irrigated and the skin was closed with 4-0 vicryl in a running subcuticular fashion. 1% lidocaine with injected subcuticularly. The incision was cleaned. Mastisol and steristrips were placed. A dressing was placed. The fundus was palpated to be firm. The patient was moved to the stretcher and taken to the recovery room in stable condition.
[2021-11-20] MEDS: Ketorolac 30 MG/ML VIAL IVP ×2 (11:50→19:00)
[2021-11-20] MEDS: Normal Saline Flush 10 ML SYR IVP ×3 (11:54→19:01)
--- NOTE | 2021-11-20 11:59 | W.PM.OBNL1 ---
Date of service: 11/20/21 Time of Service: 01:00 Informed Consent Informed Consent: Augmentation of Labor (if labor does not progress, we discussed pitocin if necessary due to ROM. Denies questions and verblaizes agreement and is aware of risks and benefits of augmentation of labor. WILLIAM) Pelvic Exam Dilation: 6 Effacement (%): 800 station: -2 Cervix Position: mid Consistency: soft Pooling: Positive Contractions Monitor Mode: External Contraction Frequency(min): every 2-4 minutes Contraction Duration(sec): 50-60 Intensity: Moderate Fetus A Monitor: External (US) Heart Rate Baseline: 140 Presentation: Vertex Variability: Moderate (6-25 BPM) Categories: Category I FHR Rhythm: Regular Accelerations: 15 X 15 Decelerations: None Amniotic Membrane Status: Ruptured Rupture Method: Spontaneous Amniotic Fluid: Clear Assessment and Plan Assessment and plan (1) PROM with onset of labor within 24 hours of rupture: Status: Acute Assessment and plan: IUPC recommended and Sara agrees. It was placed without difficulty. Uterine contractions assessed and determined to be inadequate. Will continue to assess and increase pitocin rate if indicated. Rest was encouraged. Dylon has not slept and is complaining of fatigue. Reassess for progress of labor in 2 hours and indications for were discussed with Sara if no change. Objective Temp Pulse Resp BP Pulse Ox 98.6 F 83 14 128/68 98 11/20/21 08:00 11/20/21 08:00 11/20/21 08:00 11/20/21 08:00 11/20/21 08:00 Laboratory Results WBC 15.87 10^3/uL (4.4-10.8) H 11/19/21 11:24 RBC 4.09 10^6/uL (3.93-5.22) 11/19/21 11:24 Hgb 12.6 g/dL (11.2-15.7) 11/19/21 11:24 Hct 37.2 % (36.0-46.0) 11/19/21 11:24 MCV 91 fL (80-95) 11/19/21 11:24 MCH 30.8 pg (27.0-33.0) 11/19/21 11:24 MCHC 33.9 % (32.0-36.0) 11/19/21 11:24 RDW 12.3 % (11.7-14.6) 11/19/21 11:24 Plt Count 142 10^3/uL (130-400) 11/19/21 11:24 MPV 11.6 fL (8.0-11.0) H 11/19/21 11:24 COVID-19 Source Nasal/Nares 11/19/21 11:04 SARS-CoV-2 (PCR) Negative (Negative) 11/19/21 11:04 Patient ABO/Rh A Positive 11/19/21 11:24 Antibody Screen NEGATIVE 11/19/21 11:24 Subjective Interval history since last seen: Sara is resting comfortably with epidural. Pitocin infusing at 14 mu/minute. Contractions are difficult to monitor with an irregular pattern Results Hemoglobin/Hematocrit: Hgb 12.6 g/dL (11.2-15.7) 11/19/21 11:24 Hct 37.2 % (36.0-46.0) 11/19/21 11:24 Abnormal Lab Findings: Abnormal Labs 11/19/21 11:24 WBC 15.87 H MPV 11.6 H
--- NOTE | 2021-11-20 12:06 | W.PM.OBNL1 ---
Date of service: 11/20/21 Time of Service: 03:00 Informed Consent Informed Consent: Augmentation of Labor (if labor does not progress, we discussed pitocin if necessary due to ROM. Denies questions and verblaizes agreement and is aware of risks and benefits of augmentation of labor. WILLIAM) Pelvic Exam Dilation: 6 station: -2 Position: OP Cervix Position: mid Consistency: soft Contractions Monitor Mode: External Contraction Frequency(min): every 2-4, irregular Contraction Duration(sec): varies Intensity: Moderate/Strong IUPC resting tone (mmHg): 30 IUPC peak pressure (mmHg): 60 IUPC [place] units: 150 Fetus A Monitor: External (US) Heart Rate Baseline: 140 Presentation: Vertex Variability: Moderate (6-25 BPM) Categories: Category I FHR Rhythm: Regular Accelerations: 15 X 15 Decelerations: None Assessment and Plan Assessment and plan (1) Arrested labor: Status: Acute Assessment and plan: Pitocin was infusing at 16 mu/min. Urban catheter wa placed at 0100. I examined Sara and I discussed lack of cervical change or decent with Sara and her support team and indications for . I also discussed the option of requesting an epidural bolus from [facility] and continuing to provide pitocin augmentation of section at this time. Sara prefers to have a at this time. I discussed Sara's status and her preference for a with Dr. Daily via telephone and she came in to discuss section with Sara. [facility] was also called and will plan to proceed with urgent section at this time. Pitocin infusion was discontinued due to plan for and patient discomfort, Objective Temp Pulse Resp BP Pulse Ox 98.6 F 83 14 128/68 98 11/20/21 08:00 11/20/21 08:00 11/20/21 08:00 11/20/21 08:00 11/20/21 08:00 Laboratory Results WBC 15.87 10^3/uL (4.4-10.8) H 11/19/21 11:24 RBC 4.09 10^6/uL (3.93-5.22) 11/19/21 11:24 Hgb 12.6 g/dL (11.2-15.7) 11/19/21 11:24 Hct 37.2 % (36.0-46.0) 11/19/21 11:24 MCV 91 fL (80-95) 11/19/21 11:24 MCH 30.8 pg (27.0-33.0) 11/19/21 11:24 MCHC 33.9 % (32.0-36.0) 11/19/21 11:24 RDW 12.3 % (11.7-14.6) 11/19/21 11:24 Plt Count 142 10^3/uL (130-400) 11/19/21 11:24 MPV 11.6 fL (8.0-11.0) H 11/19/21 11:24 COVID-19 Source Nasal/Nares 11/19/21 11:04 SARS-CoV-2 (PCR) Negative (Negative) 11/19/21 11:04 Patient ABO/Rh A Positive 11/19/21 11:24 Antibody Screen NEGATIVE 11/19/21 11:24 Subjective Interval history since last seen: Paged by RN at 0200 with a report that Sara was complaining of pain. Sara reports pain is -67 in her lower back bilaterally. Results Hemoglobin/Hematocrit: Hgb 12.6 g/dL (11.2-15.7) 11/19/21 11:24 Hct 37.2 % (36.0-46.0) 11/19/21 11:24 Abnormal Lab Findings: Abnormal Labs 11/19/21 11:24 WBC 15.87 H MPV 11.6 H
[2021-11-20] MEDS: Metoclopramide 10 MG/2 ML VIAL IVP (14:42)
[2021-11-20] MEDS: Venlafaxine 37.5 MG CAPCR PO (19:02)
[2021-11-20] MEDS: Normal Saline 1,000 ML 125 ML IV (20:05)
[2021-11-20] MEDS: Lidocaine 2% Jelly 5 ML TUBE (20:33)
[2021-11-21] MEDS: Ketorolac 30 MG/ML VIAL IVP (00:35)
[2021-11-21] MEDS: Normal Saline 1,000 ML 125 ML IV (00:35)
[2021-11-21] MEDS: Ibuprofen 600 MG TAB PO ×3 (06:30→23:41)
[2021-11-21] MEDS: Docusate Sodium 100 MG CAP PO ×2 (06:31→23:41)
--- NOTE | 2021-11-21 07:34 | W.PM.OBPNV1 ---
Date of service: 11/21/21 Time of Service: 07:34 Assessment and Plan Assessment and plan (1) Status post primary low transverse section: Status: Acute Assessment and plan: Postoperative day #1, status post primary low transverse section for arrest of labor. Overall doing well. Increase activity today. Breast-feeding assistance today. Discontinue Urban catheter and saline lock IV. CBC is pending. Patient is anticipating discharge home later tomorrow. All questions answered (2) Arrested labor: Status: Acute Subjective Subjective Interval history: Patient seen and examined this morning. She had her Urban catheter discontinued during the day yesterday, however had marginal urine output. Urban catheter was replaced and accurate I's and O's performed. She had adequate urine output through the night. Her pain is well controlled. Urban catheter may be discontinued today. Patient comments: No complaints and Pain well controlled Patient's Mood: Good [place] baby status: Doing well and Nursing well [place] feeding status: Exclusively breast feeding Exam Physical Exam Vital signs: Temp Pulse Resp BP Pulse Ox 98.4 F 78 16 121/81 98 11/20/21 23:50 11/20/21 23:50 11/20/21 23:50 11/20/21 23:50 11/20/21 23:50 Vital Signs Reviewed: Yes Constitutional Constitutional: no acute distress HEENT Exam HEENT Exam: Normal Neck Exam Neck Exam: Normal Respiratory Exam Respiratory Exam: Normal Cardiovascular Exam Cardiovascular Exam: Normal Abdominal Exam Abdomen: Tender Comments: Soft, nondistended Incision dressed with scant shadowing Fundal Exam Fundus: Below Umbilicus and Firm Extremities Exam Extremity Exam: Normal; negative Calf Tenderness or Edema Results Hemoglobin/Hematocrit: Hgb 12.6 g/dL (11.2-15.7) 11/19/21 11:24 Hct 37.2 % (36.0-46.0) 11/19/21 11:24 Abnormal Lab Findings: Abnormal Labs 11/19/21 11:24 WBC 15.87 H MPV 11.6 H
[2021-11-21 07:35] VITALS: BP 115/71; PULSE 74; RESP 16; TEMP 36.8; O2SAT 97
[2021-11-21 08:13] LABS: Abs Immature Grans 0.16 10^3/uL (0.0-0.06); Absolute Basophil Count 0.04 10^3/uL (0.0-0.2); Absolute Lymphocyte Count 1.84 10^3/uL (1.2-3.4); Absolute Monocyte Count 0.86 10^3/uL (0.1-0.8); Absolute Neutrophil Count 8.94 10^3/uL (1.2-6.7); Basophils % 0.3; HGB 9.5 g/dL (11.2-15.7); Immature Grans % 1.4; Lymphocytes % 15.5; MCH 30.2 pg (27.0-33.0); MCHC 32.8 % (32.0-36.0); MCV 92 fL (80-95); MPV 11.2 fL (8.0-11.0); Monocytes % 7.3; Neutrophils % 75.5; Platelet Count 115 10^3/uL (130-400); RBC 3.15 10^6/uL (3.93-5.22); RDW 12.5 % (11.7-14.6); RDW-SD 41.4 fL; WBC 11.84 10^3/uL (4.4-10.8)
[2021-11-21] MEDS: Acetaminophen 325 MG TAB 650 MG PO ×2 (10:42→23:41)
[2021-11-21 15:08] VITALS: BP 119/73; PULSE 74; RESP 16; TEMP 36.8; O2SAT 97
[2021-11-21] MEDS: Venlafaxine 37.5 MG CAPCR PO (19:54)
[2021-11-21 20:01] VITALS: BP 118/74; PULSE 78; RESP 16; TEMP 36.8
[2021-11-21 23:45] VITALS: BP 130/80; PULSE 70; RESP 16; TEMP 36.7; O2SAT 98
[2021-11-22] MEDS: Ibuprofen 600 MG TAB PO ×2 (06:10→12:18)
[2021-11-22] MEDS: Acetaminophen 325 MG TAB 650 MG PO ×2 (06:10→12:18)
[2021-11-22 07:55] VITALS: BP 119/80; PULSE 71; RESP 12; TEMP 37.1
--- NOTE | 2021-11-22 08:08 | OBPPV_ITS ---
Date of service: 11/22/21 Time of Service: 08:08 Assessment and Plan Assessment and plan (1) Status post primary low transverse section: Status: Acute Assessment and plan: Postoperative day #2 status post primary low transverse section for labor arrest after prolonged rupture of membranes. Doing well. Discharge home today. The office in 2 and 6 weeks. Subjective Subjective Interval history: Patient seen and examined this morning doing well. Breast-feeding without difficulty. Pain well controlled. Desires discharge home today. Patient's Mood: Good [place] baby status: Doing well, Nursing well and Strong Bonding Observed feeding status: Exclusively breast feeding Exam Physical Exam Vital signs: Temp Pulse Resp BP Pulse Ox 98.1 F 70 16 130/80 98 11/21/21 23:45 11/21/21 23:45 11/21/21 23:45 11/21/21 23:45 11/21/21 23:45 Vital Signs Reviewed: Yes Constitutional Constitutional: no acute distress HEENT Exam HEENT Exam: Normal Neck Exam Neck Exam: Normal Respiratory Exam Respiratory Exam: Normal Cardiovascular Exam Cardiovascular Exam: Normal Abdominal Exam Abdomen: Tender Fundal Exam Fundus: Below Umbilicus and Firm Extremities Exam Extremity Exam: Normal; negative Calf Tenderness Skin Exam Skin Exam: Normal Neurological Exam Neurological Exam: Normal Psychiatric Exam Psychiatric Exam: Normal Results Hemoglobin/Hematocrit: Hgb 9.5 g/dL (11.2-15.7) L D 11/21/21 08:00 Hct 29.0 % (36.0-46.0) L 11/21/21 08:00 Abnormal Lab Findings: Abnormal Labs 11/19/21 11/21/21 11:24 08:00 WBC 15.87 H 11.84 H RBC 3.15 L Hgb 9.5 L D Hct 29.0 L Plt Count 115 L MPV 11.6 H 11.2 H Absolute Neutrophils 8.94 H Absolute Monocytes 0.86 H
--- NOTE | 2021-11-22 08:10 | DSE_ITS ---
Date of service: 11/22/21 Time of Service: 08:11 DS: Diagnosis Discharge Diagnosis (1) Status post primary low transverse section: Status: Acute Asessment and Plan: Patient is postoperative day #2 status post primary low transverse section due to arrest of labor after prolonged rupture of membranes. She is discharged home doing well, ambulating, tolerating regular diet and oral pain medication with stable vital signs. Her follow-up with me in the office in 2 and 6 weeks. Prescription sent to pharmacy. Discharge Plan Disposition Patient Disposition: HOME Condition: Good Discharge Details Reason For Visit: Primary section Admit Date/Time: 11/19/21 09:30 Admit Provider: Elenita Lorenzo Attending Provider: Elenita Lorenzo Primary Care Provider: Hailey Melton [facility] Course Hospital Course: Patient was admitted to the center with spontaneous rupture of membranes. She had prolonged rupture of membranes. She received appropriate therapy including augmentation of labor. She had a labor arrest and underwent a primary low transverse section on 11/20/2021. She had an uncomplicated postoperative course. Home Meds and New Rx's Prescriptions: New ibuprofen 800 mg tablet 800 mg PO Q8H Qty: 30 1RF oxycodone-acetaminophen [Percocet] 5-325 mg tablet 1 tab PO Q8H PRNQty: 10 0RF Continued venlafaxine 37.5 mg capsule,extended release 24hr 37.5 mg PO DAILY vit-iron fum-folic ac 60-0.8 mg tablet 1 tab PO DAILY magnesium hydroxide [Milk of Magnesia] 400 mg/5 mL suspension 5 ml PO DAILY PRN docusate sodium [Colace] 100 mg capsule 100 mg PO BID Qty: 60 3RF Discontinued metronidazole 500 mg tablet 500 mg PO BID Qty: 14 0RF Discharge Instructions Stand Alone Forms: BC Discharge Instruc Activity:: Activity as Tolerated Equipment/Supplies:: No Equipment Needed Diet:: As Tolerated Discharge Orders Discharge Orders: Discharge Order (Routine); Ordered 11/21/21 Ordered By: Graciela Mederos OB:DS Summary Contraception Discussed Contraception Discussed: Yes Contraceptive Plan: Undecided, Infant Gender-Baby A: Female weight: 8 lb 3.396 oz Status at Discharge Functional status at discharge: independent ambulation Overall status at discharge: patient is progressing back to baseline Mental Status: mental status grossly normal Speech and Movement: speech and movement normal Mood: congruent mood Affect: normal affect Exam Physical Exam Vital signs: Temp Pulse Resp BP Pulse Ox 98.1 F 70 16 130/80 98 11/21/21 23:45 11/21/21 23:45 11/21/21 23:45 11/21/21 23:45 11/21/21 23:45 Constitutional Comments: See physical exam from progress note dated 11/22/2021 [facility] All Active Problems Status post primary low transverse section (Acute) Arrested labor (Acute) PROM with onset of labor within 24 hours of rupture (Acute) COVID-19 affecting in first trimester (Acute) 05/15/2021 Chronic constipation (Acute) Nicotine dependence due to vaping tobacco product (Acute) Elderly primigravida, antepartum (Acute) H/O penicillin-type antibiotic allergy (Acute) (Acute) Depression (Chronic) Medical History Family history of congenital heart disease in paternal grandfather Family hx-stroke MGM Missed menses Positive home test Positive test Family History Maternal Grandfather Colon cancer Cancer bone CA Prostate cancer Self Depression Paternal Grandfather Heart disease Maternal Grandmother Stroke Other Alcohol use disorder Social History Smoking/Tobacco Use Status: Current every day Tobacco Type: e-cigarettes Quit status: considering quitting Second Hand Exposure: Yes Counseling given: provider counseling Smoking risk assessment performed?: Yes Alcohol Intake: former Counseling given: Yes Details: daily alcohol use prior to Substance use type: does not use Current gender identity: female History History 1 Para 0 Hx # Term Pregnancies 0 Multiple births 0 Hx # Pregnancies 0 Ectopic pregnancies 0 AB induced 0 Hx Number of Living Children 0 AB spontaneous 0 DS: Data Vitals/I&O Vitals and I&O: Vital Signs Temperature 98.1 F 11/21/21 23:45 Pulse 70 11/21/21 23:45 Pulse Rhythm Regular 11/21/21 23:45 Respiratory Rate 16 11/21/21 23:45 Respiratory Depth Normal 11/21/21 07:30 Blood Pressure 130/80 11/21/21 23:45 Blood Pressure Mean 96 11/21/21 23:45 Pulse Oximetry 98 11/21/21 23:45 Pain Level 3 11/22/21 06:10 Intake & Output 11/21/21 11/21/21 11/22/21 11:59 23:59 11:59 Intake Total 2765.833 / 2765.833 Output Total 2975 / 3675 700 / 3675 Balance -209.167 / -909.167 -700 / -909.167 Intake: IV 1845.833 / 1845.833 Oral 920 / 920 Output: Urine 2975 / 3675 700 / 3675 Other: Urine Color Pale Yellow Yellow Urine Appearance Clear Comment Catheter d/c'd at this time. Data Completed and Pending Labs on day of discharge: Labs from last 24 hours 11/21/21 08:00 WBC 11.84 H RBC 3.15 L Hgb 9.5 L D Hct 29.0 L MCV 92 MCH 30.2 MCHC 32.8 D RDW 12.5 Plt Count 115 L MPV 11.2 H Immature Gran % 1.4 Neutrophils % 75.5 Lymphocytes % 15.5 Monocytes % 7.3 Eosinophils % 0.0 Basophils % 0.3 Nucleated RBC % 0.0 Absolute Neutrophils 8.94 H Absolute Lymphocytes 1.84 Absolute Monocytes 0.86 H Absolute Eosinophils 0.00 Absolute Basophils 0.04
== END 2021-11-22 17:45 | disposition home or self-care (01) | DRG 788 ==
PROVIDERS: Obstetrics & Gynecology; Admitting Provider Advanced Practice Midwife; PCP Family Medicine; Visit Provider Advanced Practice Midwife
PROC: 10D00Z1 Extraction of Products of Conception, Low, Open Approach (ICD-10-PCS; CPT 59514; principal; 2021-11-20 03:30)
DX: O42.02 Full-term premature rupture of membranes, onset of labor within 24 hours of rupture (principal); O62.1 Secondary uterine inertia; Z37.0 Single live birth; Z3A.40 40 weeks gestation of pregnancy; O99.344 Other mental disorders complicating childbirth; F32.A Depression, unspecified; O99.334 Smoking (tobacco) complicating childbirth; F17.290 Nicotine dependence, other tobacco product, uncomplicated; O99.62 Diseases of the digestive system complicating childbirth; K59.09 Other constipation; Z86.16 Personal history of COVID-19
CPT/HCPCS: 59514; 36415; 85027; 86850; 86900; 86901; 87635; 85025; J0456; J0690; J1885; J2370; J2405; J2765; J3010